=== PATIENT | male | born 1960 | race Caucasian/White ===

== ENCOUNTER 2025-06-28 01:01 | Emergency (ER) | payer OTHER ==
[2025-06-28] MEDS ORDERED: Acetaminophen 500 MG TAB ONE (03:35)
== END 2025-06-28 03:37 ==
LOC: ERS 01:01 → EEVIPCON 01:01 → ERS 03:37
DX: S01.81XA Laceration without foreign body of other part of head, initial encounter (principal); I10 Essential (primary) hypertension; Z79.899 Other long term (current) drug therapy; W06.XXXA Fall from bed, initial encounter
CPT/HCPCS: 12011; 70450